=== PATIENT | male | born 1985 | race Hispanic/Latino ===

== ENCOUNTER 2017-06-08 09:21 | Emergency (ER) | payer SELFPAY ==
[2017-06-08 09:41] VITALS: BP 142/77; PULSE 74; RESP 20; TEMP 98.8; O2SAT 98
--- NOTE | 2017-06-08 10:21 | C.PDOC ---
History Of Present Illness 32 y/o male with Hx of Herpes lesions presents to ED with complaints of pain on lips and left side of face. Pain is rated a 7/10. Patient states on Monday [place] and woke up with blisters on both lips and pain to the left side of face. Patient denies fever, chills, n/v/d or any other complaints at this time. Time Seen by Provider: 06/08/17 09:44 Chief Complaint (Nursing): Abnormal Skin Integrity History Per: Patient History/Exam Limitations: no limitations Onset/Duration Of Symptoms: Days Current Symptoms Are (Timing): Still Present Quality Of Symptoms: Painful Past Medical History Reviewed: Historical Data, Nursing Documentation, Vital Signs Vital Signs: Last Vital Signs Temp 98.8 F 06/08/17 09:41 Pulse 74 06/08/17 09:41 Resp 20 06/08/17 09:41 BP 142/77 06/08/17 09:41 Pulse Ox 98 06/08/17 10:23 Family History: States: No Known Family Hx - Social History Hx Alcohol Use: Yes Hx Substance Use: No - Immunization History Hx Tetanus Toxoid Vaccination: Yes Hx Influenza Vaccination: No Hx Pneumococcal Vaccination: No Review Of Systems Except As Marked, All Systems Reviewed And Found Negative. Constitutional: Negative for: Fever, Chills Gastrointestinal: Negative for: Nausea, Vomiting, Diarrhea Physical Exam - Physical Exam Appears: Non-toxic, No Acute Distress Skin: Normal Color, Warm Head: Atraumatic, Normacephalic Nose: Normal Oral Mucosa: Moist Lips: Swelling, Lesions, Erythema Throat: Normal, No Erythema Extremity: Normal ROM, Capillary Refill (<2 seconds) Neurological/Psych: Oriented x3 ED Course And Treatment O2 Sat by Pulse Oximetry: 98 (RA) Pulse Ox Interpretation: Normal Disposition Counseled Patient/Family Regarding: Need For Followup, Rx Given - Disposition Disposition: HOME/ ROUTINE Disposition Time: 10:18 Condition: STABLE Additional Instructions: Follow up with your doctor. Use Valtrex for labial herpes. Use a heavy lip balm. Prescriptions: Valacyclovir HCl [Valtrex] 2,000 mg PO DAILY #4 tablet Instructions: Oral Herpes Simplex Virus Infections (ED) Forms: General Discharge Instructions - POA Present On Arrival: None - Clinical Impression Clinical Impression: Burn from the sun, Herpes simplex labialis - Scribe Statement The provider has reviewed the documentation as recorded by the Yesseniaibjuan diego Ovalle All medical record entries made by the Yesseniaibjuan diego were at my direction and personally dictated by me. I have reviewed the chart and agree that the record accurately reflects my personal performance of the history, physical exam, medical decision making, and the department course for this patient. I have also personally directed, reviewed, and agree with the discharge instructions and disposition.
== END 2017-06-08 10:34 | disposition home or self-care (01) ==
LOC: C.ER 09:21
DX: B00.1 Herpesviral vesicular dermatitis (principal); L55.9 Sunburn, unspecified